=== PATIENT | female | born 1950 | race Caucasian/White ===

== ENCOUNTER 2018-01-27 12:27 | Emergency (ER) | payer MEDICARE ==
[2018-01-27] MEDS ORDERED: Sodium Chloride 0.9% 10 ML Syringe FLUSH PRN (13:17)
--- NOTE | 2018-01-27 14:32 | CR ---
Chest: Portable view of the chest was obtained. Comparison: No prior chest x-ray. Moderately large hiatal hernia seen. Heart size is normal. Tortuous thoracic aorta is seen. Lungs are clear with no acute parenchymal change. Old healed right-sided rib fractures are noted. Impression: 1. Hiatal hernia. Nothing acute is seen on frontal chest x-ray. Diagnostic code #2
[2018-01-27] MEDS ORDERED: Cyanocobalamin (Vitamin B12) 1,000 MCG/ML SDV IM ONE (14:53)
--- NOTE | 2018-01-27 15:17 | EDM.PDOC ---
ED HPI GENERAL MEDICAL PROBLEM - General Chief Complaint: General Stated Complaint: HBP,ANEMIC Time Seen by Provider: 01/27/18 12:46 Source of Information: Reports: Patient History Limitations: Reports: No Limitations - History of Present Illness INITIAL COMMENTS - FREE TEXT/NARRATIVE: The patient presents with anemia. She has a history of anemia from when she was a child. She was on iron supplements but the pharmacy did not have any available. She has generalized weakness and shortness of breath. She has no blood in her stools. She has no ever, chills, cough, chest pain, abdominal pain , nausea and vomiting. She has a mild headache and she has some confusion at times. She recently was diagnosed with a DVT in her left arm and she is on aspirin and eliquis. She is concerned she is anemic and may need a transfusion. Her last transfusion was 2 years ago. Onset: Gradual Duration: Week(s): Severity: Moderate Improves with: Reports: None Worsens with: Reports: None Associated Symptoms: Reports: Shortness of Breath. Denies: Chest Pain, Fever/ Chills, Headaches, Nausea/Vomiting - Related Data Allergies Allergy/AdvReac Type Severity Reaction Status Date / Time No Known Allergies Allergy Verified 01/27/18 12:49 Home Meds: Home Meds Apixaban [Eliquis] 5 mg PO BID 01/27/18 [History] Aspirin [Halfprin] 81 mg PO DAILY 01/27/18 [History] Venlafaxine [Effexor] 150 mg PO DAILY 01/27/18 [History] Past Medical History Cardiovascular History: Reports: Blood Clots/VTE/DVT Other Cardiovascular History: left arm past 6 months;done in [place]. Musculoskeletal History: Reports: Other (See Below) Psychiatric History: Reports: Bipolar, Depression Oncologic (Cancer) History: Reports: Breast Other Oncologic History: bilateral breast surgery-reconstructive surgery - Past Surgical History Musculoskeletal Surgical History: Reports: Arthroscopic Knee Social & Family History - Tobacco Use Smoking Status *Q: Former Smoker Used Tobacco, but Quit: Yes Month/Year Tobacco Last Used: 1998 - Caffeine Use Caffeine Use: Reports: Coffee, Soda - Recreational Drug Use Recreational Drug Use: No ED ROS GENERAL - Review of Systems Review Of Systems: See Below Constitutional: Reports: Weakness, Fatigue. Denies: Fever, Chills HEENT: Reports: No Symptoms Respiratory: Reports: Shortness of Breath. Denies: Cough Cardiovascular: Reports: No Symptoms Endocrine: Reports: No Symptoms GI/Abdominal: Reports: No Symptoms : Reports: No Symptoms Musculoskeletal: Reports: No Symptoms ED EXAM, GENERAL - Physical Exam Exam: See Below Exam Limited By: No Limitations General Appearance: Alert, No Apparent Distress Ears: Normal External Exam Nose: Normal Inspection Head: Atraumatic, Normocephalic Neck: Normal Inspection Respiratory/Chest: No Respiratory Distress, Lungs Clear, Normal Breath Sounds Cardiovascular: Regular Rate, Rhythm, No Edema, No Murmur GI/Abdominal: Soft, Non-Tender, No Organomegaly, No Mass Back Exam: Normal Inspection Extremities: Normal Inspection Neurological: Alert, Oriented, No Motor/Sensory Deficits EKG INTERPRETATION EKG Date: 01/27/18 Time: 13:33 Rhythm: NSR Rate (Beats/Min): 89 [place]: Normal P-Wave: Present QRS: Normal ST-T: Normal QT: Normal Course - Vital Signs Last Recorded V/S: Last Vital Signs Temp 98.2 F 01/27/18 17:00 Pulse 94 01/27/18 12:42 Resp 19 01/27/18 17:00 BP 187/89 H 01/27/18 17:00 Pulse Ox 95 01/27/18 17:00 - Orders/Labs/Meds Orders: Active Orders 24 hr Category Date Time Status Cardiac Monitoring [RC] . DIRECTED Care 01/27/18 13:18 Active EKG Documentation Completion [RC] STAT Care 01/27/18 13:18 Active Peripheral IV Care [RC] . DIRECTED Care 01/27/18 13:18 Active PATIENT RETYPE [BBK] Stat Lab 01/27/18 13:35 Results RED BLOOD CELLS LP [BBK] Stat Lab 01/27/18 13:35 Results TYPE AND SCREEN [BBK] Stat Lab 01/27/18 13:35 Results Sodium Chloride 0.9% [Normal Saline] 500 ml Med 01/27/18 16:45 Active IV ASDIRECTED Sodium Chloride 0.9% [Saline Flush] Med 01/27/18 13:17 Active 10 ml FLUSH ASDIRECTED PRN Peripheral IV Insertion Adult [OM.PC] Stat Oth 01/27/18 13:17 Ordered Transfuse PRBC [Transfuse Red Blood Cells] [COMM] Stat Oth 01/27/18 15:19 Ordered Medication Orders Sodium Chloride (Normal Saline) 500 mls @ 50 mls/hr IV ASDIRECTED AGUS Last Admin: 01/27/18 16:48 Dose: 50 mls/hr Sodium Chloride (Saline Flush) 10 ml FLUSH ASDIRECTED PRN PRN Reason: Keep Vein Open Last Admin: 01/27/18 13:40 Dose: 10 ml Labs: Laboratory Tests 01/27/18 01/27/18 01/27/18 Range/Units 13:35 13:35 13:35 WBC 9.74 (3.98-10.04) K/mm3 RBC 3.58 L (3.98-5.22) M/mm3 Hgb 8.2 L (11.2-15.7) gm/L Hct 28.5 L (34.1-44.9) % MCV 79.6 (79.4-94.8) fl MCH 22.9 L (25.6-32.2) pg MCHC 28.8 L (32.2-35.5) g/dl RDW Std Deviation 58.8 H (36.4-46.3) fL Plt Count 538 H (182-369) K/mm3 MPV 10.6 (9.4-12.3) fl Neut % (Auto) 61.4 (34.0-71.1) % Lymph % (Auto) 17.5 L (19.3-51.7) % [place]clean % (Auto) 10.4 (4.7-12.5) % Eos % (Auto) 10.0 H (0.7-5.8) Baso % (Auto) 0.5 (0.1-1.2) % Neut # (Auto) 5.99 (1.56-6.13) K/mm3 Lymph # (Auto) 1.70 (1.18-3.74) K/mm3 [place] # (Auto) 1.01 H (0.24-0.36) K/mm3 Eos # (Auto) 0.97 H (0.04-0.36) K/mm3 Baso # (Auto) 0.05 (0.01-0.08) K/mm3 Manual Slide Review Abnormal smear Sodium 136 (136-145) mEq/L Potassium 4.2 (3.5-5.1) mEq/L Chloride 106 (98-107) mEq/L Carbon Dioxide 27 (21-32) mEq/L Anion Gap 7.2 (5-15) BUN 14 (7-18) mg/dL Creatinine 1.0 (0.55-1.02) mg/dL Est Cr Clr Drug Dosing 49.70 mL/min Estimated GFR (MDRD) 55 (>60) mL/min BUN/Creatinine Ratio 14.0 (14-18) Glucose 111 (80-115) mg/dL Calcium 9.4 (8.5-10.1) mg/dL Iron 16 L (50-170) ug/dL TIBC 350 (100-400) ug/dL % Saturation 5 L (20-55) % Transferrin 280 (202-364) mg/dL Total Bilirubin 0.2 (0.2-1.0) mg/dL AST 21 (15-37) U/L ALT 24 (14-59) U/L Alkaline Phosphatase 120 H (46-116) U/L Troponin I < 0.017 (0.00-0.056) ng/mL Total Protein 7.0 (6.4-8.2) g/dl Albumin 3.3 L (3.4-5.0) g/dl Globulin 3.7 gm/dL Albumin/Globulin Ratio 0.9 L (1-2) Blood Type Gel Antibody Screen Crossmatch 01/27/18 Range/Units 13:35 WBC (3.98-10.04) K/mm3 RBC (3.98-5.22) M/mm3 Hgb (11.2-15.7) gm/L Hct (34.1-44.9) % MCV (79.4-94.8) fl MCH (25.6-32.2) pg MCHC (32.2-35.5) g/dl RDW Std Deviation (36.4-46.3) fL Plt Count (182-369) K/mm3 MPV (9.4-12.3) fl Neut % (Auto) (34.0-71.1) % Lymph % (Auto) (19.3-51.7) % Mclean % (Auto) (4.7-12.5) % Eos % (Auto) (0.7-5.8) Baso % (Auto) (0.1-1.2) % Neut # (Auto) (1.56-6.13) K/mm3 Lymph # (Auto) (1.18-3.74) K/mm3 [place]clean # (Auto) (0.24-0.36) K/mm3 Eos # (Auto) (0.04-0.36) K/mm3 Baso # (Auto) (0.01-0.08) K/mm3 Manual Slide Review Sodium (136-145) mEq/L Potassium (3.5-5.1) mEq/L Chloride (98-107) mEq/L Carbon Dioxide (21-32) mEq/L Anion Gap (5-15) BUN (7-18) mg/dL Creatinine (0.55-1.02) mg/dL Est Cr Clr Drug Dosing mL/min Estimated GFR (MDRD) (>60) mL/min BUN/Creatinine Ratio (14-18) Glucose (80-115) mg/dL Calcium (8.5-10.1) mg/dL Iron (50-170) ug/dL TIBC (100-400) ug/dL % Saturation (20-55) % Transferrin (202-364) mg/dL Total Bilirubin (0.2-1.0) mg/dL AST (15-37) U/L ALT (14-59) U/L Alkaline Phosphatase (46-116) U/L Troponin I (0.00-0.056) ng/mL Total Protein (6.4-8.2) g/dl Albumin (3.4-5.0) g/dl Globulin gm/dL Albumin/Globulin Ratio (1-2) Blood Type A POSITIVE Gel Antibody Screen Negative Crossmatch See Detail Meds: Medications Generic Name Dose Route Start Last Admin Trade Name Freq PRN Reason Stop Dose Admin Sodium Chloride 500 mls @ 50 mls/hr 01/27/18 16:45 01/27/18 16:48 Normal Saline IV 50 mls/hr ASDIRECTED AGUS Administration Sodium Chloride 10 ml 01/27/18 13:17 01/27/18 13:40 Saline Flush FLUSH 10 ml ASDIRECTED PRN Administration Keep Vein Open Discontinued Medications Generic Name Dose Route Start Last Admin Trade Name Freq PRN Reason Stop Dose Admin Cyanocobalamin 1,000 mcg 01/27/18 14:53 01/27/18 15:13 Vitamin B12 IM 01/27/18 14:54 1,000 mcg ONETIME ONE Administration Ferric Sodium Gluconate 110 mls @ 100 mls/hr 01/27/18 14:49 01/27/18 15:32 Complex 125 mg/ Sodium IV 01/27/18 15:54 100 mls/hr Chloride ONETIME ONE Administration - Re-Assessments/Exams Free Text/Narrative Re-Assessment/Exam: 01/27/18 17:15 I ordered an IV saline lock, EKG, CXR and labs. Her EKG shows a NSR with no acute changes. Her CXR shows a hiatal hernia with no acute changes. Her 01/27/18 17:17 Her Hgb was low at 8.2. He platelets were elevated at 538. Her troponin was negative. Her iron was low at 16. Her TIBC was elevated at 350. Her % saturation of iron is low at 5%. I have ordered IV iron and vitamin B 12. She is symptomatic with her anemia with shortness of breath, confusion and generalized weakness that I feel she needs to get a unit of blood. I have ordered 1 unit of blood. I will also get her on some iron. Her daughter went to go pick the iron up while she is getting the transfusions. Departure - Departure Time of Disposition: 18:30 Disposition: Home, Self-Care 01 Condition: Good Clinical Impression: Anemia Qualifiers: Anemia type: iron deficiency Iron deficiency anemia type: unspecified iron deficiency Qualified Code(s): D50.9 - Iron deficiency anemia, unspecified - Discharge Information *PRESCRIPTION DRUG MONITORING PROGRAM REVIEWED*: No *COPY OF PRESCRIPTION DRUG MONITORING REPORT IN PATIENT ABENA: No Referrals: PCP,Not In Area [Primary Care Provider] - Forms: ED Department Discharge Additional Instructions: Take the iron supplement 2 times per day and also take a multivitamin. Follow up with your doctor in 1 week. Please return if you are worse. - My Orders Last 24 Hours: My Active Orders 01/27/18 13:17 Sodium Chloride 0.9% [Saline Flush] 10 ml FLUSH ASDIRECTED PRN Peripheral IV Insertion Adult [OM.PC] Stat 01/27/18 13:18 Cardiac Monitoring [RC] . DIRECTED EKG Documentation Completion [RC] STAT Peripheral IV Care [RC] . DIRECTED 01/27/18 13:35 PATIENT RETYPE [BBK] Stat RED BLOOD CELLS LP [BBK] Stat TYPE AND SCREEN [BBK] Stat 01/27/18 15:19 Transfuse PRBC [Transfuse Red Blood Cells] [COMM] Stat 01/27/18 16:45 Sodium Chloride 0.9% [Normal Saline] 500 ml IV ASDIRECTED - Assessment/Plan Last 24 Hours: My Active Orders 01/27/18 13:17 Sodium Chloride 0.9% [Saline Flush] 10 ml FLUSH ASDIRECTED PRN Peripheral IV Insertion Adult [OM.PC] Stat 01/27/18 13:18 Cardiac Monitoring [RC] . DIRECTED EKG Documentation Completion [RC] STAT Peripheral IV Care [RC] . DIRECTED 01/27/18 13:35 PATIENT RETYPE [BBK] Stat RED BLOOD CELLS LP [BBK] Stat TYPE AND SCREEN [BBK] Stat 01/27/18 15:19 Transfuse PRBC [Transfuse Red Blood Cells] [COMM] Stat 01/27/18 16:45 Sodium Chloride 0.9% [Normal Saline] 500 ml IV ASDIRECTED
[2018-01-27] MEDS ORDERED: Sodium Chloride 0.9% 500 ML IV SCH (16:45)
== END 2018-01-27 19:25 | disposition home or self-care (01) ==
LOC: JD.ED 12:27 → SUPCPDRO 12:27 → JD.ED 19:25
DX: D50.9 Iron deficiency anemia, unspecified (principal); Z79.82 Long term (current) use of aspirin; Z79.899 Other long term (current) drug therapy; Z87.891 Personal history of nicotine dependence
CPT/HCPCS: 36415; 36430; 71045; 80053; 83540; 84466; 84484; 85025; 86850; 86900; 86901; 86922; 93005; 96365; 96372; 99284; J2916; J3420; J7030; J7040; J7050; P9016; 93010

== ENCOUNTER 2020-12-04 07:38 | Day surgery (SDC) | payer MEDICARE ==
--- NOTE | 2020-12-01 10:10 | PCM.PREANE ---
Preanesthetic Assessment - Procedure Proposed Procedure: EGD with dilation - Anesthesia/Transfusion/Family Hx Anesthesia History: Prior Anesthesia Without Reaction Family History of Anesthesia Reaction: No Transfusion History: Prior Transfusion Without Reaction Intubation History: Unknown - Review of Systems General: No Symptoms Pulmonary: No Symptoms, Shortness of Breath (Patient is not SOB now. Patient states that she walks a block three times a day with her dog. Patient states that she does not get chest pain during walks. Patient stated that at the end of the walk she does get mild SOB. ) Cardiovascular: No Symptoms Gastrointestinal: Difficulty Swallowing Neurological: Tingling (Right hand) Other: Reports: Easy Bleeding, Easy Bruising, Diabetes, Depression, Anxiety - Physical Assessment NPO Status Date: 12/03/20 NPO Status Time: 22:00 Vital Signs: BP 131/72 HR 86 93% RR 18 99.3 Height: 1.68 m Weight: 82 kg ASA Class: 3 Mental Status: Alert & Oriented x3 Dentition: Reports: Broken Tooth/Teeth, Missing Tooth/Teeth, Caries (Very poor dentition, only 3 teeth on top; 5 teeth on bottom, multiple fragments of broken off teeth, risks extensively reviewed and patient verbalized understanding) Thyro-Mental Finger Breadths: 3 Mouth Opening Finger Breadths: 3 Lungs: Clear to Auscultation, Normal Respiratory Effort Cardiovascular: Regular Rate, Regular Rhythm, No Murmurs - Lab Values: Labs reviewed and okay to procedure - Imaging/EKG Impressions: EKG 12/04/2020: NSR HR 89 ECHO 02/29/2020 "showed no wall abnormalities with EF 65%". 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 On lovenox for hx of DVTs Respiratory History: Reports: Asthma Other Respiratory History: Hx of pleural effusion Other Gastrointestinal History: Dysphagia Other OB/BYN History: Mastectomy Musculoskeletal History: Reports: Other (See Below) Other Musculoskeletal History: Current fractured right humeral head and in right arm sling Other Neuro History: Episodic lightheadedness, dizziness, neuropathy, memory loss Psychiatric History: Reports: Anxiety, Bipolar, Depression Endocrine/Metabolic History: Reports: Obesity/BMI 30+ Hematologic History: Reports: Anemia, Iron Deficiency Oncologic (Cancer) History: Reports: Breast Other Oncologic History: bilateral breast surgery-reconstructive surgery - Past Surgical History Respiratory Surgical History: Reports: Thoracentesis (Last was 06/2020) Female Surgical History: Reports: Mastectomy Musculoskeletal Surgical History: Reports: Arthroscopic Knee Other Musculoskeletal Surgeries/Procedures:: Left knee surgery, right shoulder bursectomy - SUBSTANCE USE Tobacco Use Status *Q: Former Tobacco User (Quit 1998) Tobacco Use Within Last Twelve Months: No Second Hand Smoke Exposure: No Days Per Week of Alcohol Use: 0 Number of Drinks Per Day: 0 Total Drinks Per Week: 0 - HOME MEDS Home Medications: Home Meds Apixaban [Eliquis] 5 mg PO BID 01/27/18 [History] Aspirin [Halfprin] 81 mg PO DAILY 01/27/18 [History] Venlafaxine [Effexor] 150 mg PO DAILY 01/27/18 [History] - CURRENT (IN HOUSE) MEDS Current Meds: Current Medications Lactated Ringer's (Ringers, Lactated) 1,000 mls @ 125 mls/hr IV ASDIRECTED AGUS Stop: 12/04/20 23:00 Lidocaine/Sodium Bicarbonate (Lidocaine 1%/Sod Bicarbonate In Ns 8.4% 1 Ml S yringe) 0.25 ml IDERM ONETIME PRN PRN Reason: Prior to IV Start Stop: 12/04/20 18:00 Sodium Chloride (Sodium Chloride 0.9% 10 Ml Syringe) 10 ml FLUSH ASDIRECTED PRN PRN Reason: Keep Vein Open Stop: 12/04/20 18:00
[~2020-12-04 07:38] MED LIST: Albuterol 0.083% 2.5 MG/3 ML Neb Soln NEB SCH; Lactated Ringers 1,000 ML IV SCH; Lidocaine 1%/Sod Bicarbonate in NS 8.4% 1 ML Syringe IDERM PRN; Lidocaine 4% Top Soln 50 ML Bottle ONE; Sodium Chloride 0.9% 10 ML Syringe FLUSH PRN
[2020-12-04] MEDS ORDERED: Sodium Chloride 0.9% 0 ML ONE (08:12)
[2020-12-04] MEDS ORDERED: EPINEPHrine 1 MG/ML SDV ONE (08:12)
[2020-12-04] MEDS ORDERED: Ketamine 500 mg/10 ML MDV ONE (08:14)
[2020-12-04] MEDS ORDERED: Propofol 200 MG/20 ML SDV ONE ×2 (08:14→09:15)
--- NOTE | 2020-12-04 08:31 | PCM.SN.2 ---
#1 Interpretation EKG Date: 12/04/20 Rhythm: NSR Rate (Beats/Min): 89 [place]: Normal P-Wave: Present QRS: Normal ST-T: Normal
[2020-12-04] MEDS ORDERED: Ondansetron 4 MG/2 ML SDV ONE (09:31)
[2020-12-04] MEDS ORDERED: fentaNYL 100 MCG/2 ML SDV ONE (09:32)
--- NOTE | 2020-12-04 09:56 | PCM48HPAN ---
Post Anesthesia Note - EVALUATION WITHIN 48HRS OF ANESTHETIC Vital Signs in Normal Range: Yes Patient Participated in Evaluation: Yes Respiratory Function Stable: Yes Airway Patent: Yes Cardiovascular Function Stable: Yes Hydration Status Stable: Yes Pain Control Satisfactory: No (Will reassess, patient complaining of stomach pain) Nausea and Vomiting Control Satisfactory: Yes Mental Status Recovered: Yes Vital Signs: Last Vital Signs Temp 99.3 F 12/04/20 07:40 Pulse 87 12/04/20 07:40 Resp 20 12/04/20 07:40 BP 131/72 12/04/20 07:40 Pulse Ox 94 L 12/04/20 08:04 - COMMENTS/OBSERVATIONS Free Text/Narrative:: Discussed "stomach pain" and patient is complaining about with Dr. Dickinson. He went in to see patient and stated to hold off on giving any additional pain medications at this time.
--- NOTE | 2020-12-04 10:09 | PROC ---
DATE OF OPERATION: 12/04/2020 SURGEON: Andrea Dickinson MD PREOPERATIVE DIAGNOSES: 1. Dysphagia. 2. Distal esophageal stricture. POSTOPERATIVE DIAGNOSES: 1. Dysphagia. 2. Distal esophageal stricture. OPERATION PERFORMED: Esophagogastroduodenoscopy with dilation. ESTIMATED BLOOD LOSS: Minimal. ANESTHESIA: Monitored anesthesia care. COMPLICATIONS: None. INDICATION AND CONSENT: Ms. Morse is a 70-year-old female who has been having severe dysphagia. An esophagram was done that showed distal esophageal stricture. The patient was evaluated by me for dilation and deemed a good candidate, and we discussed risks, benefits, and alternatives. Informed consent was obtained. The patient is on Lovenox for history of deep vein thrombosis, which she stopped 2 days prior to today. DETAILS OF THE PROCEDURE: The patient was taken to the procedure room, placed in left lateral decubitus position. Monitored anesthesia care was induced. Then, we placed the scope through the mouth down. We found a stricture at 30 cm in the distal esophagus. Immediately post stricture, there was a large hiatal hernia. This was traversed and I entered into the stomach. The stomach appeared normal. Went to the duodenum which also appeared normal. Biopsies were taken in the antrum to rule out H pylori. On retroflexion, once again a large hiatal hernia containing stomach was visualized. Then, we went back to the area of the stricture. This was a moderate-sized stricture that was able to be traversed with minimal pressure. Of note, we used pediatric scope. Then, biopsies were taken at the stricture as well as distal esophagus, which appeared to have mild superficial mucosal erosion. Then, once biopsies were taken, we dilated using a TTS balloon dilator 10-11- 12, and 12-13.5-15. We dilated to 13.5 mm. Post dilation, the stricture was inspected and appeared to be moderately more open. Mucosal disruption was minimal and there was no bleeding afterwards. We stopped dilating at 13.5 mm. The stricture itself appeared to be benign, concentric, and there were no signs for any malignancy. Once this was done, air was suctioned out, and procedure was concluded. The patient will be allowed to return home. Follow up with me in 2 weeks for discussion of pathology and see how she is doing. MMODAL /[id number] RYAN
--- NOTE | 2020-12-04 11:14 | PCM48HPAN ---
Post Anesthesia Note - EVALUATION WITHIN 48HRS OF ANESTHETIC Vital Signs in Normal Range: Yes Patient Participated in Evaluation: Yes Respiratory Function Stable: Yes Airway Patent: Yes Cardiovascular Function Stable: Yes Hydration Status Stable: Yes Pain Control Satisfactory: Yes Nausea and Vomiting Control Satisfactory: Yes Mental Status Recovered: Yes Vital Signs: Last Vital Signs Temp 98.8 F 12/04/20 09:42 Pulse 84 12/04/20 10:45 Resp 17 12/04/20 10:45 BP 142/66 H 12/04/20 10:45 Pulse Ox 95 12/04/20 10:45 - COMMENTS/OBSERVATIONS Free Text/Narrative:: Xray of abdomen completed, see report. Patient stated pain is a tolerable level at this time.
--- NOTE | 2020-12-04 11:20 | CR ---
Abdomen: Upright view of the abdomen was obtained. Comparison: No previous study. Increased gas is noted within the colon compatible with recent procedure. Numerous areas of density are noted within diverticuli within the colon. No free air is seen. Moderately large hiatal hernia is noted. Scoliosis and degenerative change is noted within the spine. Bony structures are osteopenic. Surgical clips are seen within both lateral chest hernandez. Impression: 1. Findings as noted above. 2. No free air is seen. Diagnostic code #2
[2020-12-04] MEDS ORDERED: Simethicone 80 MG Tab.Chew PO ONE (11:30)
== END 2020-12-04 12:13 | disposition home or self-care (01) ==
LOC: JD.SDS 07:38
PROVIDERS: ATTEND Surgery
DX: K22.2 Esophageal obstruction (principal); K44.9 Diaphragmatic hernia without obstruction or gangrene; K31.89 Other diseases of stomach and duodenum; I78.1 Nevus, non-neoplastic; K20.90 Esophagitis, unspecified without bleeding; C50.919 Malignant neoplasm of unspecified site of unspecified female breast; I25.2 Old myocardial infarction; Z79.899 Other long term (current) drug therapy; J45.909 Unspecified asthma, uncomplicated; Z98.890 Other specified postprocedural states; Z87.891 Personal history of nicotine dependence; Z20.822 Contact with and (suspected) exposure to COVID-19
CPT/HCPCS: 43239; 43249; 74018; 82947; 88305; 93005; 94640; A9270; J0171; J2405; J2704; J3010; J7120; 00731

== ENCOUNTER 2021-03-12 08:25 | Day surgery (SDC) | payer MEDICARE ==
[~2021-03-12 08:25] MED LIST changes: -Albuterol 0.083% 2.5 MG/3 ML Neb Soln NEB SCH; -Lactated Ringers 1,000 ML IV SCH; -Lidocaine 4% Top Soln 50 ML Bottle ONE
--- NOTE | 2021-03-12 08:30 | PCM.PREANE ---
Preanesthetic Assessment - Procedure Proposed Procedure: EGD with dilation - Anesthesia/Transfusion/Family Hx Anesthesia History: Prior Anesthesia Without Reaction Family History of Anesthesia Reaction: No Transfusion History: Prior Transfusion Without Reaction Intubation History: Unknown - Review of Systems General: No Symptoms Pulmonary: No Symptoms Cardiovascular: No Symptoms Gastrointestinal: No Symptoms Neurological: Tingling (Neuropathy baseline) Other: Reports: Easy Bruising, Diabetes, Depression, Anxiety - Physical Assessment Lungs: Clear to Auscultation, Normal Respiratory Effort Cardiovascular: Regular Rate, Regular Rhythm, No Murmurs - Allergies Allergies/Adverse Reactions: Allergies Allergy/AdvReac Type Severity Reaction Status Date / Time No Known Allergies Allergy Verified 03/12/21 09:03 - Acknowledgements Anesthesia Type Planned: MAC Pt an Appropriate Candidate for the Planned Anesthesia: Yes Alternatives and Risks of Anesthesia Discussed w Pt/Guardian: Yes Pt/Guardian Understands and Agrees with Anesthesia Plan: Yes PreAnesthesia Questionnaire HEENT History: Reports: Hard of Hearing, Retinal Detachment Other HEENT History: 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 On lovenox for hx of DVTs Respiratory History: Reports: Asthma, Other (See Below) Other Respiratory History: Hx of pleural effusion Gastrointestinal History: Reports: Other (See Below) Other Gastrointestinal History: Dysphagia Genitourinary History: Reports: None Other OB/BYN History: Mastectomy Musculoskeletal History: Reports: Other (See Below) Neurological History: Reports: Neuropathy, Peripheral Other Neuro History: Episodic lightheadedness, dizziness, neuropathy, memory loss Psychiatric History: Reports: Anxiety, Bipolar, Depression Endocrine/Metabolic History: Reports: Diabetes, Type II, Obesity/BMI 30+ Hematologic History: Reports: Anemia, Iron Deficiency Immunologic History: Reports: None Oncologic (Cancer) History: Reports: Breast Other Oncologic History: bilateral breast surgery-reconstructive surgery, cancer spread to bones and lungs Dermatologic History: Reports: Other (See Below) Other Dermatologic History: skin cancer, melanoma on back, neck and shoulder - Infectious Disease History Infectious Disease History: Reports: None - Past Surgical History Head Surgeries/Procedures: Reports: None HEENT Surgical History: Reports: Detached Retina Respiratory Surgical History: Reports: Thoracentesis GI Surgical History: Reports: EGD Female Surgical History: Reports: Breast Reconstruction, Mastectomy Neurological Surgical History: Reports: None Musculoskeletal Surgical History: Reports: Arthroscopic Knee Other Musculoskeletal Surgeries/Procedures:: Left knee surgery, right shoulder bursectomy Oncologic Surgical History: Reports: Mastectomy - SUBSTANCE USE Tobacco Use Status *Q: Former Tobacco User (quit 1998) Second Hand Smoke Exposure: No Days Per Week of Alcohol Use: 0 Number of Drinks Per Day: 0 Total Drinks Per Week: 0 Recreational Drug Use History: No - HOME MEDS Home Medications: Home Meds Venlafaxine [Effexor] 150 mg PO DAILY 01/27/18 [History] Everolimus [Afinitor] 10 mg PO DAILY 12/04/20 [History] Exemestane [Aromasin] 25 mg PO DAILY 12/04/20 [History] Ibuprofen [Advil] 200 mg PO ASDIRECTED PRN 12/04/20 [History] Iron Polysaccharides Complex [Ferrex 150] 150 mg PO ASDIRECTED 12/04/20 [History] Multivitamin 1 tab PO DAILY 03/09/21 [History] Nitroglycerin [Nitrostat] 0.4 mg SL ASDIRECTED PRN 03/09/21 [History] Omeprazole Magnesium [Prilosec Otc] 20 mg PO DAILY 03/09/21 [History] metFORMIN [Glucophage XR] 500 mg PO DAILY 03/09/21 [History] - CURRENT (IN HOUSE) MEDS Current Meds: Current Medications Lactated Ringer's (Ringers, Lactated) 1,000 mls @ 125 mls/hr IV ASDIRECTED AGUS Stop: 03/12/21 23:00 Lidocaine/Sodium Bicarbonate (Lidocaine 1%/Sod Bicarbonate In Ns 8.4% 1 Ml Syringe) 0.25 ml IDERM ONETIME PRN PRN Reason: Prior to IV Start Stop: 03/12/21 18:00 Sodium Chloride (Sodium Chloride 0.9% 10 Ml Syringe) 10 ml FLUSH ASDIRECTED PRN PRN Reason: Keep Vein Open Stop: 03/12/21 18:00
[2021-03-12] MEDS: Lactated Ringers 1,000 ML IV SCH ×2 (09:06→10:36)
[2021-03-12] MEDS ORDERED: fentaNYL 100 MCG/2 ML SDV ONE ×2 (09:48→10:58)
[2021-03-12] MEDS ORDERED: Propofol 200 MG/20 ML SDV ONE ×2 (09:48→10:45)
[2021-03-12] MEDS ORDERED: Lidocaine 1% 4 ML ONE (09:50)
--- NOTE | 2021-03-12 11:36 | PCM48HPAN ---
Post Anesthesia Note - EVALUATION WITHIN 48HRS OF ANESTHETIC Vital Signs in Normal Range: Yes Patient Participated in Evaluation: Yes Respiratory Function Stable: Yes Airway Patent: Yes Cardiovascular Function Stable: Yes Hydration Status Stable: Yes Pain Control Satisfactory: Yes Nausea and Vomiting Control Satisfactory: Yes Mental Status Recovered: Yes Vital Signs: Last Vital Signs Temp 98.1 F 03/12/21 11:28 Pulse 86 03/12/21 11:28 Resp 16 03/12/21 11:28 BP 133/72 03/12/21 11:28 Pulse Ox 96 03/12/21 11:28 - COMMENTS/OBSERVATIONS Free Text/Narrative:: See intra-op note
--- NOTE | 2021-03-12 12:33 | PROC ---
DATE OF OPERATION: 03/12/2021 SURGEON: Andrea Dickinson MD PREOPERATIVE DIAGNOSIS: Distal esophageal stenosis. POSTOPERATIVE DIAGNOSIS: Distal esophageal stenosis. OPERATION PERFORMED: Esophagogastroduodenoscopy with balloon dilation of distal esophageal stenosis. ESTIMATED BLOOD LOSS: Minimal. ANESTHESIA: Monitored anesthesia care. INDICATION AND CONSENT: Ms. Morse is 71. Has a known distal esophageal stenosis. She underwent dilation to 12 mm using a TTS balloon about 2 weeks ago. The patient continued to have dysphagia and we planned to do 3 consecutive dilations every 2 weeks. This is the second of the of 3. She presented for the procedure again today. She has not noted any difference after the last procedure. DETAILS OF PROCEDURE: The patient was taken to the procedure room, placed in left lateral decubitus position. Monitored anesthesia care was induced. A bite block was placed and began the procedure, placed a pediatric EGD down, and once again, we found a stenosis in the distal esophagus from 27 to 31 cm from the incisors. This is an area around the GE junction which was at 31 cm from the incisors. The patient has a large hiatal hernia containing stomach and the patient has Emmett ulcers as well. The rest of the stomach appeared normal. Duodenal bulb and first and second duodenum appeared normal. On retroflexion, once again a large paraesophageal hiatal hernia containing stomach as well as Emmett ulcers. We went back to the area of the stenosis. At this time, the pediatric scope was able to traverse the area with minimum amount of force similar to where we left it after dilating to 12 mm TTS balloon last time. Therefore, decision was made to proceed with dilation. A TTS balloon 12, 13.5, to 15 was placed into this area. We first dilated the entire stenosis to 13.5, and then we once again dilated to 15 mm. Mucosal break was moderate, and bleeding was minimal. Biopsies were taken at the stenosis area with forceps for histologic exam. Once the dilation was done, the stenosis appeared to be moderately opened and the scope was able to pass in and out without any force this time around. The patient will be allowed to return home and come back in another 2 weeks for one more round of dilation. MMODAL /[id number] [facility]
== END 2021-03-12 12:18 | disposition home or self-care (01) ==
LOC: JD.SDS 08:25
PROVIDERS: ATTEND Surgery
DX: K22.2 Esophageal obstruction (principal); K44.9 Diaphragmatic hernia without obstruction or gangrene; K25.9 Gastric ulcer, unspecified as acute or chronic, without hemorrhage or perforation; E11.9 Type 2 diabetes mellitus without complications; F32.A Depression, unspecified; J45.909 Unspecified asthma, uncomplicated; E66.9 Obesity, unspecified; Z98.890 Other specified postprocedural states; Z79.899 Other long term (current) drug therapy; Z79.84 Long term (current) use of oral hypoglycemic drugs; Z87.891 Personal history of nicotine dependence; Z01.812 Encounter for preprocedural laboratory examination; Z20.822 Contact with and (suspected) exposure to COVID-19
CPT/HCPCS: 43249; 82947; J2704; J3010; J7120; U0002; 00731; 88305; 99100

== ENCOUNTER 2021-03-26 08:22 | Day surgery (SDC) | payer MEDICARE ==
--- NOTE | 2021-03-23 13:16 | PCM.PREANE ---
Preanesthetic Assessment - Procedure Proposed Procedure: EGD with Dilation - Anesthesia/Transfusion/Family Hx Anesthesia History: Prior Anesthesia Without Reaction Family History of Anesthesia Reaction: No Transfusion History: Prior Transfusion Without Reaction Intubation History: Unknown - Review of Systems General: No Symptoms Pulmonary: No Symptoms (asthma/ quit smoking in 1998-cold air worsens asthma: albuterol inhaler taken and 2 puffs additionally taken in preoperative area.), Wheezing (with cold air) Cardiovascular: No Symptoms (History of MT with stents placed: 2017) Gastrointestinal: No Symptoms (Hiatal Hernia/GERD-controlled), Difficulty Swallowing Neurological: No Symptoms, Numbness (left hand) Other: Reports: None (History of breast cancer (bilateral mastectomy) with metatastasis to left neck(mass noted) and lesion of back.), Easy Bruising (On lovenox: history of blood clot in arm.), Diabetes (am blood sugar: 122 @ 0840), Sinus Problem, Depression (history of Bipolar), Anxiety - Physical Assessment NPO Status Date: 03/25/21 NPO Status Time: 20:30 Vital Signs: HR: 84 Sat: 93% Temp: 98.3 B/P: 137/77 Resp: 18 Height: 1.68 m Weight: 80 kg ASA Class: 3 Mental Status: Alert & Oriented x3 Airway Class: Mallampati = 2 Dentition: Reports: Broken Tooth/Teeth, Missing Tooth/Teeth Thyro-Mental Finger Breadths: 3 Mouth Opening Finger Breadths: 3 ROM/Head Extension: Full Lungs: Clear to Auscultation, Normal Respiratory Effort Cardiovascular: Regular Rate, Regular Rhythm, No Murmurs - Imaging/EKG Impressions: EK12/04/2020: NSR rate= 89 - Allergies Allergies/Adverse Reactions: Allergies Allergy/AdvReac Type Severity Reaction Status Date / Time No Known Allergies Allergy Verified 03/12/21 09:03 - Anesthesia Plan Pre-Op Medication Ordered: None - Acknowledgements Anesthesia Type Planned: MAC Pt an Appropriate Candidate for the Planned Anesthesia: Yes Alternatives and Risks of Anesthesia Discussed w Pt/Guardian: Yes Pt/Guardian Understands and Agrees with Anesthesia Plan: Yes PreAnesthesia Questionnaire HEENT History: Reports: Hard of Hearing, Retinal Detachment Other HEENT History: 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 On lovenox for hx of DVTs Respiratory History: Reports: Asthma, Other (See Below) Other Respiratory History: Hx of pleural effusion Gastrointestinal History: Reports: Other (See Below) Other Gastrointestinal History: Dysphagia Genitourinary History: Reports: None Other OB/BYN History: Mastectomy Musculoskeletal History: Reports: Other (See Below) Other Musculoskeletal History: Current fractured right humeral head and in right arm sling Neurological History: Reports: Neuropathy, Peripheral Other Neuro History: Episodic lightheadedness, dizziness, neuropathy, memory loss Psychiatric History: Reports: Anxiety, Bipolar, Depression Endocrine/Metabolic History: Reports: Diabetes, Type II, Obesity/BMI 30+ Hematologic History: Reports: Anemia, Iron Deficiency Immunologic History: Reports: None Oncologic (Cancer) History: Reports: Breast Other Oncologic History: bilateral breast surgery-reconstructive surgery, cancer spread to bones and lungs Dermatologic History: Reports: Other (See Below) Other Dermatologic History: skin cancer, melanoma on back, neck and shoulder - Infectious Disease History Infectious Disease History: Reports: None - Past Surgical History Head Surgeries/Procedures: Reports: None HEENT Surgical History: Reports: Detached Retina Respiratory Surgical History: Reports: Thoracentesis GI Surgical History: Reports: EGD Female Surgical History: Reports: Breast Reconstruction, Mastectomy Neurological Surgical History: Reports: None Musculoskeletal Surgical History: Reports: Arthroscopic Knee Other Musculoskeletal Surgeries/Procedures:: Left knee surgery, right shoulder bursectomy Oncologic Surgical History: Reports: Mastectomy - HOME MEDS Home Medications: Home Meds Venlafaxine [Effexor] 150 mg PO DAILY 01/27/18 [History] Everolimus [Afinitor] 10 mg PO DAILY 12/04/20 [History] Exemestane [Aromasin] 25 mg PO DAILY 12/04/20 [History] Ibuprofen [Advil] 200 mg PO ASDIRECTED PRN 12/04/20 [History] Iron Polysaccharides Complex [Ferrex 150] 150 mg PO ASDIRECTED 12/04/20 [History] Multivitamin 1 tab PO DAILY 03/09/21 [History] Nitroglycerin [Nitrostat] 0.4 mg SL ASDIRECTED PRN 03/09/21 [History] Omeprazole Magnesium [Prilosec Otc] 20 mg PO DAILY 03/09/21 [History] metFORMIN [Glucophage XR] 500 mg PO DAILY 03/09/21 [History] - CURRENT (IN HOUSE) MEDS Current Meds: Current Medications Lactated Ringer's (Ringers, Lactated) 1,000 mls @ 125 mls/hr IV ASDIRECTED AGUS Stop: 03/26/21 23:00 Lidocaine/Sodium Bicarbonate (Lidocaine 1%/Sod Bicarbonate In Ns 8.4% 1 Ml Syringe) 0.25 ml IDERM ONETIME PRN PRN Reason: Prior to IV Start Stop: 03/26/21 18:00 Sodium Chloride (Sodium Chloride 0.9% 10 Ml Syringe) 10 ml FLUSH ASDIRECTED PRN PRN Reason: Keep Vein Open Stop: 03/26/21 18:00
[~2021-03-26 08:22] MED LIST changes: +Lactated Ringers 1,000 ML IV SCH
[2021-03-26] MEDS ORDERED: Propofol 200 MG/20 ML SDV ONE ×2 (09:02→11:28)
[2021-03-26] MEDS ORDERED: Midazolam 1 MG/ML 2 ML SDV ONE (09:02)
[2021-03-26] MEDS ORDERED: fentaNYL 100 MCG/2 ML SDV ONE ×2 (09:02→11:01)
--- NOTE | 2021-03-26 11:47 | PCM48HPAN ---
Post Anesthesia Note - EVALUATION WITHIN 48HRS OF ANESTHETIC Vital Signs in Normal Range: Yes Patient Participated in Evaluation: Yes Respiratory Function Stable: Yes Airway Patent: Yes Cardiovascular Function Stable: Yes Hydration Status Stable: Yes Pain Control Satisfactory: Yes Nausea and Vomiting Control Satisfactory: Yes Mental Status Recovered: Yes Vital Signs: Last Vital Signs Temp 36.8 C 03/26/21 08:30 Pulse 84 03/26/21 08:30 Resp 18 03/26/21 08:30 BP 137/77 03/26/21 08:30 Pulse Ox 93 L 03/26/21 08:30
--- NOTE | 2021-03-26 12:12 | PROC ---
DATE OF OPERATION: 03/26/2021 SURGEON: Andrea Dickinson MD PREOPERATIVE DIAGNOSIS: Symptomatic esophageal stricture. POSTOPERATIVE DIAGNOSIS: Symptomatic esophageal stricture. OPERATION PERFORMED: Esophagogastroduodenoscopy with balloon dilation. ANESTHESIA: Monitored anesthesia care. ESTIMATED BLOOD LOSS: Minimal. COMPLICATIONS: None. FINDINGS: There was a stricture from 27 to 31 cm from the incisors. This was dilated from 12 to 15, then 15 to 18 mm using TTS balloon. INDICATION AND CONSENT: Ms. Hodge is 71 yo F. She has benign what is likely peptic stricture at the distal esophagus and GE junction. The patient has undergone 2 dilations so far. First dilation was to 12 mm and then following was to 15 mm and today the patient presents for another series of dilation to 18. She has no changes since last seen 2 weeks ago and is doing otherwise well. The patient has been able to take medications and take fluids. We again reviewed risks, benefits, and alternatives and informed consent was obtained. DESCRIPTION OF PROCEDURE: The patient was taken to the procedure room and placed in left lateral decubitus position. Then, monitored anesthesia care was induced. Then, time-out was performed and we proceeded with an EGD. A regular scope was placed into the mouth and taken down, the upper and mid esophagus were normal. In the distal esophagus, once again, there was a stricture from 27 to 31. GE junction was at 31. The stricture was traversed with moderate amount of pressure and it goes down into the medium to large hiatal hernia. Then, the stomach was entered and inspected. There was just very small superficial ulcers in the antrum. These were previously biopsied and they were benign until the bulb, first and second portion of the esophagus, both were normal. The scope was withdrawn back into the stricture area and the TTS balloon was placed at 12, 13.5 to 15, and dilation was carried to 15. Then, this was easily done. There was no mucosal damage. We proceeded with increasing to 18. Therefore, another 15, 16.5 to 18 TTS balloon was placed and the stricture was dilated to 18 mm. Each dilation was held for about [address] Once this was done, mucosal breakage was moderate. There was a little bit of wheezing, but the stricture appeared to be open and the scope was able to pass through with no pressure. We decided to stop here. Air was suctioned out from the stomach and the scope was withdrawn. The patient will be allowed to return home and start taking some soft foods and follow up with me in clinic in 2 weeks to see if another dilation would be needed. NEEMA /[id number] MTDD
== END 2021-03-26 13:00 | disposition home or self-care (01) ==
LOC: JD.SDS 08:22
PROVIDERS: ATTEND Surgery
DX: K22.2 Esophageal obstruction (principal); K25.9 Gastric ulcer, unspecified as acute or chronic, without hemorrhage or perforation; C50.919 Malignant neoplasm of unspecified site of unspecified female breast; Z79.899 Other long term (current) drug therapy; Z79.84 Long term (current) use of oral hypoglycemic drugs; Z98.890 Other specified postprocedural states; E11.40 Type 2 diabetes mellitus with diabetic neuropathy, unspecified; Z87.891 Personal history of nicotine dependence
CPT/HCPCS: 43249; 82947; J2250; J2704; J3010; J7120; 00731; 99100

== ENCOUNTER 2022-06-02 19:05 | Emergency (ER) | payer MEDICARE ==
[2022-06-02] MEDS ORDERED: Sodium Chloride 0.9% 10 ML Syringe FLUSH PRN (20:13)
[2022-06-02] MEDS ORDERED: HYDROmorphone 0.5 MG/0.5 ML Syringe IVPUSH ONE (20:15)
[2022-06-02] MEDS ORDERED: Sodium Chloride 0.9% 1,000 ML IV SCH (22:15)
[2022-06-02] MEDS ORDERED: Heparin Sodium 5,000 Units/ML Vial IVPUSH ONE (22:24)
[2022-06-02] MEDS ORDERED: Heparin Sodium/D5W 25,000 UNITS/500 ML BAG IV SCH (22:30)
[2022-06-02 23:53] LABS: CORONAVIRUS COVID-19 NAA NEGATIVE (NEGATIVE)
== END 2022-06-02 23:40 ==
LOC: JD.ED 19:05
DX: I82.401 Acute embolism and thrombosis of unspecified deep veins of right lower extremity (principal); R18.0 Malignant ascites; C50.919 Malignant neoplasm of unspecified site of unspecified female breast; E11.9 Type 2 diabetes mellitus without complications; E66.9 Obesity, unspecified; Z68.22 Body mass index [BMI] 22.0-22.9, adult; Z79.899 Other long term (current) drug therapy; Z87.891 Personal history of nicotine dependence; Z20.822 Contact with and (suspected) exposure to COVID-19
CPT/HCPCS: 0241U; 36415; 80053; 83735; 85025; 85610; 85730; 93971; 96365; 96375; 99285; J1170; J1644; J3490; J7030; 99283